=== PATIENT | male | born 1970 ===

== ENCOUNTER 2023-02-20 06:24 | Day surgery (SDC) | payer OTHER ==
[~2023-02-20 06:24] MED LIST: AVAPRO150 MG PO; LANTUS SOL100 UNIT/1; LIPIT PO; METFORMIN HCL1000 M1 PO; MOUNJARO5 MG/0.5 M
[2023-02-20] MEDS ORDERED: KETO10TA2 PO (09:41)
[2023-02-20] MEDS ORDERED: TRAMADOL HCL50 MG PO (09:41)
[2023-02-20] MEDS ORDERED: MIRALAX17 GM PO (09:41)
[2023-02-20] MEDS ORDERED: TYLENOL ARTHRI650 MG PO (09:41)
== END 2023-02-20 13:40 | disposition home or self-care (01) ==
LOC: CIR.AMB 06:24
PROVIDERS: ATTEND Surgery
DX: K43.6 Other and unspecified ventral hernia with obstruction, without gangrene (principal); K42.0 Umbilical hernia with obstruction, without gangrene; E11.9 Type 2 diabetes mellitus without complications; Z20.822 Contact with and (suspected) exposure to COVID-19